=== PATIENT | male | born 1935 | race Caucasian/White ===

== ENCOUNTER 2017-03-28 15:01 | Inpatient (IN) | payer OTHER ==
[~2017-03-28] VITALS: Ht 170.2 cm; Wt 72.6 kg
[~2017-03-28 15:01] MED LIST: AMLODIPINE BES2.5 M1 PO; CIPRO500 MG PO; COUMADIN2 MG; ERGOCALCIFER50000 IU PO; FLA500 PO; HYDROCHLOROTHIA25 MG PO; LISINOPRIL40 MG PO; METOPROLOL SUCC25 M1 PO; SIMVASTATIN10 M1 PO
[2017-03-28 15:51] VITALS: Ht 170.2 cm; Wt 72.6 kg
[2017-03-28 17:41] LABS: BASOPHIL % 0.3 % (0-2); PLATELET COUNT 286 x10^3mcL (130-400)
[2017-03-28 17:47] LABS: RED CELL DISTRIBUTION WIDTH 16.3 % (11.5-14.5)
[2017-03-28 17:50] LABS: ALKALINE PHOSPHATASE 56 U/L (46-116); ALT/SGPT 12 U/L (16-63); AMYLASE 71 U/L (25-115); AST/SGOT 11 U/L (15-37); BILIRUBIN TOTAL 0.44 mg/dL (0.20-1.00); CALCIUM 10.2 mg/dL (8.5-10.1); CHLORIDE SERUM 99 mmol/L (98-107); CHOLESTEROL 149 mg/dL (<200); GLUCOSE SERUM 104 mg/dL (74-106); HDL CHOLESTEROL 55 mg/dL (40-60); LIPASE 103 IU/L (73-393); MAGNESIUM 3.1 mg/dL (1.8-2.4); SODIUM SERUM 137 mmol/L (136-145); T4(THYROXINE) 6.6 ug/dL (4.7-13.3); TOTAL PROTEIN, SERUM 7.5 g/dL (6.4-8.2)
[2017-03-28 17:53] LABS: ALBUMIN 3.1 g/dL (3.4-5.0)
[2017-03-28 17:55] LABS: CREATININE SERUM 9.9 mg/dL (0.7-1.3); POTASSIUM SERUM 5.7 mmol/L (3.5-5.1)
[2017-03-28] MEDS ORDERED: NOR10 PO (18:44)
[2017-03-28] MEDS ORDERED: METOPROLOL SUCC50 M2 PO (18:44)
[2017-03-28] MEDS ORDERED: SIMVASTATIN40 M1 PO (18:45)
[2017-03-28] MEDS ORDERED: NEPHRO-VITE VITA1 EA PO (18:45)
[2017-03-28] MEDS ORDERED: COUMADIN2 MG PO (18:46)
[2017-03-28 21:06] VITALS: BP 186/67
[2017-03-28 21:24] VITALS: BP 186/67
[2017-03-29] VITALS (8 sets, daily range): BP systolic 178–200; BP diastolic 55–75
[2017-03-29 01:45] LABS: FREE T4 0.9 ng/dL (0.76-1.46); FREE THYROXINE INDEX 2.2 ug/dL (1.4-4.5); T4(THYROXINE) 6.2 ug/dL (4.7-13.3)
[2017-03-29 02:09] LABS: T3 TOTAL 0.73 ng/mL
[2017-03-29 02:23] LABS: CARBON DIOXIDE 24.1 mmol/L (21-32); CHLORIDE SERUM 101 mmol/L (98-107); GLUCOSE SERUM 110 mg/dL (74-106); POTASSIUM SERUM 5.2 mmol/L (3.5-5.1); SODIUM SERUM 139 mmol/L (136-145)
[2017-03-29 02:27] LABS: CREATININE SERUM 10.1 mg/dL (0.7-1.3)
[2017-03-29 06:36] LABS: BASOPHIL % 0.3 % (0-2); PLATELET COUNT 271 x10^3mcL (130-400)
[2017-03-29 07:06] LABS: RED CELL DISTRIBUTION WIDTH 16.4 % (11.5-14.5)
[2017-03-29 07:21] LABS: CALCIUM 9.6 mg/dL (8.5-10.1); CARBON DIOXIDE 22.2 mmol/L (21-32); CHLORIDE SERUM 102 mmol/L (98-107); GLUCOSE SERUM 109 mg/dL (74-106); MAGNESIUM 3.2 mg/dL (1.8-2.4); POTASSIUM SERUM 4.7 mmol/L (3.5-5.1); SODIUM SERUM 142 mmol/L (136-145)
[2017-03-29 07:48] LABS: PHOSPHOROUS 10.1 mg/dL (2.5-4.9)
== END 2017-03-29 20:17 | disposition home health service (06) | DRG 640 ==
LOC: ED 15:01 → DU 20:05
PROVIDERS: Emergency Medicine; ADMIT Family Medicine
DX: E87.8 Other disorders of electrolyte and fluid balance, not elsewhere classified (principal); G93.41 Metabolic encephalopathy; N17.0 Acute kidney failure with tubular necrosis; I50.43 Acute on chronic combined systolic (congestive) and diastolic (congestive) heart failure; N18.6 End stage renal disease; I13.2 Hypertensive heart and chronic kidney disease with heart failure and with stage 5 chronic kidney disease, or end stage renal disease; E44.1 Mild protein-calorie malnutrition; I11.0 Hypertensive heart disease with heart failure; I16.0 Hypertensive urgency; E83.41 Hypermagnesemia; E87.5 Hyperkalemia; E78.5 Hyperlipidemia, unspecified; Z68.24 Body mass index [BMI] 24.0-24.9, adult; Z86.718 Personal history of other venous thrombosis and embolism; Z99.2 Dependence on renal dialysis
CPT/HCPCS: 82962; 83880; 84439; 94150; 97530-GP; G0480; J0610; J7620; Q0092

== ENCOUNTER 2018-04-22 08:56 | Inpatient (IN) | payer OTHER ==
[~2018-04-22] VITALS: Ht 170.2 cm; Wt 69.4 kg
[~2018-04-22 08:56] MED LIST changes: +COUMADIN2 MG PO; +METOPROLOL SUCC50 M2 PO; +NEPHRO-VITE VITA1 EA PO; +NOR10 PO; +SIMVASTATIN40 M1 PO
[2018-04-22 09:03] VITALS: Ht 170.2 cm; Wt 69.4 kg
[2018-04-22 09:42] LABS: BASOPHIL % 0.1 % (0-2); PLATELET COUNT 291 x10^3mcL (130-400)
[2018-04-22 09:44] LABS: RED CELL DISTRIBUTION WIDTH 16.2 % (11.5-14.5)
[2018-04-22 09:57] LABS: ALKALINE PHOSPHATASE 106 U/L (46-116); ALT/SGPT 19 U/L (16-63); AST/SGOT 14 U/L (15-37); BILIRUBIN TOTAL 0.43 mg/dL (0.20-1.00); CARBON DIOXIDE 27.9 mmol/L (21-32); CHLORIDE SERUM 96 mmol/L (98-107); GLUCOSE SERUM 94 mg/dL (74-106); POTASSIUM SERUM 4.3 mmol/L (3.5-5.1); SODIUM SERUM 133 mmol/L (136-145); TOTAL PROTEIN, SERUM 7.1 g/dL (6.4-8.2)
[2018-04-22 09:59] LABS: ALBUMIN 2.6 g/dL (3.4-5.0); CREATININE SERUM 6.9 mg/dL (0.7-1.3)
[2018-04-22] MEDS ORDERED: RENA-VITE RX1 TAB PO (11:55)
[2018-04-22] MEDS ORDERED: NOR5 PO (11:55)
[2018-04-22 14:33] VITALS: BP 170/60
[2018-04-22] MEDS ORDERED: METOPROLOL TART50 MG PO (16:03)
[2018-04-22 16:30] VITALS: BP 152/53
[2018-04-22 20:57] VITALS: BP 157/59
[2018-04-23 05:37] VITALS: BP 158/60
[2018-04-23 07:43] VITALS: BP 155/50
[2018-04-23 11:27] VITALS: BP 154/41
[2018-04-23 16:08] VITALS: BP 168/58
[2018-04-23 19:25] VITALS: BP 165/55
[2018-04-24 05:20] VITALS: BP 165/58
[2018-04-24 06:58] LABS: BASOPHIL % 0.8 % (0-2); PLATELET COUNT 268 x10^3mcL (130-400)
[2018-04-24 07:04] LABS: RED CELL DISTRIBUTION WIDTH 16.3 % (11.5-14.5)
[2018-04-24 07:34] LABS: CALCIUM 10.3 mg/dL (8.5-10.1); CHLORIDE SERUM 97 mmol/L (98-107); GLUCOSE SERUM 81 mg/dL (74-106); POTASSIUM SERUM 4.7 mmol/L (3.5-5.1); SODIUM SERUM 134 mmol/L (136-145)
[2018-04-24 07:38] LABS: CREATININE SERUM 6.3 mg/dL (0.7-1.3)
[2018-04-24 09:38] VITALS: BP 156/53
[2018-04-24 13:16] VITALS: BP 156/53
== END 2018-04-24 14:50 | disposition home health service (06) | DRG 291 ==
LOC: ED 08:56 → DU 12:30
PROVIDERS: Emergency Medicine; ADMIT Internal Medicine Pulmonary Disease
DX: I13.2 Hypertensive heart and chronic kidney disease with heart failure and with stage 5 chronic kidney disease, or end stage renal disease (principal); N18.6 End stage renal disease; S32.502A Unspecified fracture of left pubis, initial encounter for closed fracture; E87.1 Hypo-osmolality and hyponatremia; I50.9 Heart failure, unspecified; E83.52 Hypercalcemia; E78.5 Hyperlipidemia, unspecified; F03.90 Unspecified dementia, unspecified severity, without behavioral disturbance, psychotic disturbance, mood disturbance, and anxiety; Z99.2 Dependence on renal dialysis; Z68.29 Body mass index [BMI] 29.0-29.9, adult; Z87.891 Personal history of nicotine dependence; Z79.01 Long term (current) use of anticoagulants; Z86.718 Personal history of other venous thrombosis and embolism; X58.XXXA Exposure to other specified factors, initial encounter; Y93.89 Activity, other specified; Y92.89 Other specified places as the place of occurrence of the external cause
CPT/HCPCS: 83880; 97116-GP; 97530-GP; Q0092